=== PATIENT | female | born 1975 | race Caucasian/White ===

== ENCOUNTER 2024-06-15 09:01 | Outpatient (CLI) | payer BC ==
[2024-06-15 12:09] LABS: BASOPHILS % (AUTO) 0.5 %; EOSINOPHILS # (AUTO) 0.3 10^3/uL (0.0-0.7); EOSINOPHILS % (AUTO) 3.5 %; HCT - HEMATOCRIT 39.7 % (37.0-47.0); HGB - HEMOGLOBIN 12.5 g/dL (12.0-16.0); LYMPHOCYTES # (AUTO) 2.3 10^3/uL (1.5-3.5); LYMPHOCYTES % (AUTO) 30.5 %; MEAN CORPUSCULAR HEMOGLOBIN 30.1 pg (27.0-31.0); MEAN CORPUSCULAR HGB CONC 31.5 g/dL (32.0-36.0); MEAN CORPUSCULAR VOLUME 95.7 fL (81.0-99.0); MEAN PLATELET VOLUME 11.3 fL (7.9-10.8); MONOCYTES # (AUTO) 0.4 10^3/uL (0.0-1.0); MONOCYTES % (AUTO) 5.9 %; NEUTROPHILS # (AUTO) 4.4 10^3/uL (1.5-6.6); NEUTROPHILS % (AUTO) 59.5 %; PLT - PLATELET COUNT 281 10^3/uL (130-450); RED BLOOD COUNT 4.15 10^6/uL (4.20-5.40); RED CELL DISTRIBUTION WIDTH 12.7 % (12.0-15.0); WHITE BLOOD COUNT 7.4 x10^3/uL (4.8-10.8)
[2024-06-15 12:31] LABS: % IRON SATURATION 17 % (20-50); CHOL/HDL RATIO 3.9 (<4.4); CHOLESTEROL 190 mg/dL; CRP - C-REACTIVE PROTEIN 0.8 mg/dL (<0.5); GLUCOSE 102 mg/dL (74-104); HDL CHOLESTEROL 49 mg/dL; IRON 61 ug/dL (50-212); LDL CHOLESTEROL,CALCULATED 101 mg/dL; LDL/HDL RATIO 2.1 (<4.4); TOTAL IRON BINDING CAPACITY 351 ug/dL (250-450); TRANSFERRIN 251 mg/dL (203-362); TRIGLYCERIDES 198 mg/dL; VLDL CHOLESTEROL 40 mg/dL
[2024-06-15 12:46] LABS: FERRITIN 69.3 ng/mL (11.0-306.8)
[2024-06-15 12:49] LABS: ESTIMATED AVERAGE GLUCOSE 123 mg/dL (70-100); HEMOGLOBIN A1c% 5.9 % (4.27-6.07)
== END 2024-06-15 09:02 | disposition home or self-care (01) ==
LOC: LAB.N 09:01
PROVIDERS: ATTEND Naturopath
DX: R73.03 Prediabetes (principal); N93.9 Abnormal uterine and vaginal bleeding, unspecified; F50.89 Other specified eating disorder; D25.9 Leiomyoma of uterus, unspecified; R79.82 Elevated C-reactive protein (CRP); Z71.3 Dietary counseling and surveillance; R53.83 Other fatigue; Z13.29 Encounter for screening for other suspected endocrine disorder; E61.1 Iron deficiency; Z13.220 Encounter for screening for lipoid disorders
CPT/HCPCS: 36415; 80061; 82728; 82947; 83036; 83540; 83721; 84466; 85025; 86140